=== PATIENT | male | born 1945 | race Caucasian/White ===

== ENCOUNTER 2020-05-25 16:51 | Emergency (ER) | payer MEDICARE, OTHER ==
--- NOTE | 2020-05-25 18:26 | EDM.PDOC ---
<Alana Singh - Last Filed: 05/25/20 18:40> ED HPI GENERAL MEDICAL PROBLEM - General Chief Complaint: Cardiovascular Problem Stated Complaint: C/R LAB RESULTS Time Seen by Provider: 05/25/20 17:45 Source of Information: Reports: Patient, Family, Old Records, RN, RN Notes Reviewed History Limitations: Reports: No Limitations - History of Present Illness INITIAL COMMENTS - FREE TEXT/NARRATIVE: Pt here with spouse after a phone call from Cardiology [employer] from todays visit. Old records were obtained and reviewed. BNP was 1141 and Hgb 7.6. Pt denies CP or syncope. One year cardiology appt today and was instructed to take 20 meQ of KCL and eat 1 banana. Then tomorrow take 40 meQ and eat 2 bananas. Pt has Lasix at home to take PRN and has not taken them lately. Presented at Dr today with +3 edema in BLLE. 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 Pt is SOB with exertion but CXR was clear for the most part. Onset: Today Onset Date: 05/25/20 - Related Data Allergies Allergy/AdvReac Type Severity Reaction Status Date / Time No Known Allergies Allergy Verified 05/25/20 17:40 Home Meds: Home Meds Aspirin [Halfprin] 81 mg PO DAILY 07/29/18 [History] Metoprolol Succinate [Toprol XL 100mg] 100 mg PO DAILY 07/29/18 [History] Multivit-Min/Iron Fum/Folic AC [Bqnrt-Cobpmka-Djtyjlyw Tablet] 1 each PO DAILY 07/29/18 [History] Nitroglycerin [Nitrostat] 0.4 mg SL ASDIRECTED 07/29/18 [History] Rosuvastatin [Crestor] 20 mg PO BEDTIME 07/29/18 [History] tadalafiL [Cialis] 10 mg PO DAILY PRN 07/29/18 [History] Furosemide 20 mg PO ASDIRECTED 05/25/20 [History] Past Medical History Cardiovascular History: Reports: Heart Failure, High Cholesterol, Hypertension Gastrointestinal History: Reports: Other (See Below) Other Gastrointestinal History: hernia - Past Surgical History Cardiovascular Surgical History: Reports: Coronary Artery Bypass Social & Family History - Tobacco Use Smoking Status *Q: Former Smoker Used Tobacco, but Quit: Yes Month/Year Tobacco Last Used: 0 - Caffeine Use Caffeine Use: Reports: Soda - Alcohol Use Days Per Week of Alcohol Use: 7 Number of Drinks Per Day: 1 Total Drinks Per Week: 7 - Recreational Drug Use Recreational Drug Use: No ED ROS GENERAL - Review of Systems Review Of Systems: See Below Constitutional: Reports: No Symptoms, Weight Gain (CHF fluid up 10 pounds) HEENT: Reports: No Symptoms Respiratory: Reports: Shortness of Breath (Fluid up 10 pounds CHf. Lasix RX instructed) Cardiovascular: Reports: No Symptoms Endocrine: Reports: No Symptoms GI/Abdominal: Reports: No Symptoms : Reports: No Symptoms Musculoskeletal: Reports: No Symptoms Skin: Reports: No Symptoms Neurological: Reports: No Symptoms Psychiatric: Reports: No Symptoms Hematologic/Lymphatic: Reports: No Symptoms Immunologic: Reports: No Symptoms ED EXAM, GENERAL - Physical Exam Exam: See Below Exam Limited By: No Limitations General Appearance: Alert, WD/WN, No Apparent Distress Eye Exam: Bilateral Eye: PERRL Head: Normocephalic Neck: Normal Inspection Respiratory/Chest: Lungs Clear, Normal Breath Sounds (SOB with exertion from CHF. Chronic) Cardiovascular: Regular Rate, Rhythm, Other (+3 edema BLLE ) Peripheral Pulses: 1+: Dorsalis Pedis (L), Dorsalis Pedis (R), 2+: Radial (L), Radial (R) GI/Abdominal: Normal Bowel Sounds (Male) Exam: Deferred Rectal (Males) Exam: Tenderness (Diffuse tenderness with exam. No masses. Light brown stool. No impaction. Guiac obtained. ) Extremities: Pedal Edema Neurological: Alert, Oriented, CN II-XII Intact Psychiatric: Normal Affect, Normal Mood Skin Exam: Warm, Dry, Normal Color Departure - Departure Time of Disposition: 18:40 Disposition: Home, Self-Care 01 Condition: Good Clinical Impression: Chronic anemia Instructions: Anemia Referrals: Felipe Haile NP [Primary Care Provider] - Forms: ED Department Discharge Care Plan Goals: The test for blood in stool was negative. Your hemoglobin was 7.6 and your BNP was 1141. Per your visit today with Cardiology, you need to follow up with your provider or Cardiology in the next 2 days. Please take TWO 20 mg Lasix tabs in the morning and eat 2 bananas throughout your day. If you do not have good urine output by the end of the day repeat the TWO 20 mg Lasix and 2 bananas AGAIN the following day. THEN take ONE 20 mg Lasix and 1 banana each morning until you re-visit your provider. Be sure to track your blood pressure BEFORE you take your Lasix. IF your blood pressure is under 100, hold the Lasix until your blood pressure will allow you to take the Lasix. even if that means the next day. Call tomorrow for your echocardiogram time as planned Sepsis Event Note (ED) - Evaluation Sepsis Screening Result: No Definite Risk - Problem List & Annotations (1) Chronic anemia SNOMED Code(s): 618416452 Code(s): D64.9 - ANEMIA, UNSPECIFIED Status: Acute Priority: High - Problem List Review Problem List Initiated/Reviewed/Updated: Yes - Assessment/Plan Plan: The test for blood in stool was negative. Your hemoglobin was 7.6 and your BNP was 1141. Per your visit today with Cardiology, you need to follow up with your provider or Cardiology next week. Please take TWO 20 mg Lasix tabs in the morning and eat 2 bananas throughout your day. If you do not have good urine output by the end of the day repeat the TWO 20 mg Lasix and 2 bananas AGAIN the following day. THEN take ONE 20 mg Lasix and 1 banana each morning until you re-visit your provider. Be sure to track your blood pressure BEFORE you take your Lasix. IF your blood pressure is under 100, hold the Lasix until your blood pressure will allow you to take the Lasix. even if that means the next day. <Barrera Coronel - Last Filed: 05/26/20 00:25> Course - Vital Signs Last Recorded V/S: Last Vital Signs Temp 97.7 F 05/25/20 17:38 Pulse 94 05/25/20 18:31 Resp 25 H 05/25/20 17:38 BP 151/64 H 05/25/20 18:31 Pulse Ox 91 L 05/25/20 17:38 - Re-Assessments/Exams Free Text/Narrative Re-Assessment/Exam: 05/25/20 19:48 Guaiac was negative and patient remained stable. Discussed his condition with the cardiology department in [place], they recommended rechecking the hemoglobin in the next 48 hours with the best scenario having him admitted tonight for observation. Patient did not want admission and did not agree, but he will come back and see his primary provider or go to the walk-in clinic in the next 48 hours for recheck. He will continue with the Lasix and potassium replacement with bananas as discussed with cardiology. Departure - Departure Time of Disposition: 19:54 Sepsis Event Note (ED) - Focused Exam Vital Signs: Vital Signs Temp Pulse Resp BP Pulse Ox 05/25/20 18:31 94 151/64 H 05/25/20 17:38 97.7 F 103 H 25 H 158/84 H 91 L 05/25/20 17:20 97.7 F 103 H 25 H 158/84 H 91 L
== END 2020-05-25 19:54 | disposition home or self-care (01) ==
LOC: JP.ED 16:51
DX: D64.9 Anemia, unspecified (principal); E78.00 Pure hypercholesterolemia, unspecified; I11.0 Hypertensive heart disease with heart failure; I50.9 Heart failure, unspecified; Z87.891 Personal history of nicotine dependence; Z79.82 Long term (current) use of aspirin
CPT/HCPCS: 82272; 99283

== ENCOUNTER 2022-10-14 02:28 | Emergency (ER) | payer MEDICARE, OTHER ==
[2022-10-14] MEDS ORDERED: Ondansetron 4 MG Tab.DIS PO ONE (03:17)
== END 2022-10-14 03:28 | disposition home or self-care (01) ==
LOC: JP.ED 02:28
DX: A08.4 Viral intestinal infection, unspecified (principal); I11.0 Hypertensive heart disease with heart failure; I50.9 Heart failure, unspecified; E78.00 Pure hypercholesterolemia, unspecified; Z79.82 Long term (current) use of aspirin; Z79.899 Other long term (current) drug therapy; Z95.1 Presence of aortocoronary bypass graft; Z87.891 Personal history of nicotine dependence
CPT/HCPCS: 99283; Q0162

== ENCOUNTER 2022-11-05 14:09 | Inpatient (IN) | payer MEDICARE, OTHER ==
[2022-11-05 15:08] LABS: ESTIMATED GFR 57 mL/min (>60); TROPONIN I HIGH SENSITIVITY 24.5 pg/mL (<=60.3)
[2022-11-05] MEDS ORDERED: Furosemide 40 MG/4 ML VIAL IVPUSH ONE (15:17)
[2022-11-05] MEDS ORDERED: Sodium Chloride 0.9% 10 ML Syringe FLUSH PRN (16:18)
[2022-11-05] MEDS ORDERED: Acetaminophen 325 MG Tab PO PRN (16:18)
[2022-11-05] MEDS ORDERED: Ondansetron 4 MG/2 ML SDV IV PRN (16:18)
[2022-11-05] MEDS ORDERED: Potassium Chloride 20 MEQ Tab.ER PO ONE (16:30)
[2022-11-05 17:45] LABS: CORONAVIRUS COVID-19 NAA NEGATIVE (NEGATIVE)
[2022-11-05] MEDS: Pantoprazole 40 MG Tab.CR PO SCH (18:24)
[2022-11-05] MEDS: Enoxaparin 40 MG/0.4 ML Syringe SUBCUT SCH (18:24)
[2022-11-05] MEDS: Rosuvastatin 10 MG Tab PO SCH (21:36)
[2022-11-06 05:39] LABS: ESTIMATED GFR 52 mL/min (>60)
[2022-11-06] MEDS ORDERED: Bumetanide 2.5 MG/10 ML MDV IVPUSH SCH ×2 (07:00)
[2022-11-06] MEDS: Bumetanide 0.5 MG, Bumetanide 2.5 MG IVPUSH SCH ×4 (07:27→19:12)
[2022-11-06] MEDS: Pantoprazole 40 MG Tab.CR PO SCH ×2 (07:28→17:00)
[2022-11-06] MEDS: Aspirin 81 MG Tab.EC PO SCH (08:33)
[2022-11-06] MEDS: Metoprolol Succinate 50 MG Tab.ER PO SCH (08:33)
[2022-11-06] MEDS ORDERED: Metoprolol Succinate 50 MG Tab.ER PO SCH (09:00)
[2022-11-06] MEDS ORDERED: Potassium Chloride 20 MEQ Tab.ER PO ONE ×2 (09:00→17:00)
[2022-11-06] MEDS: acetaZOLAMIDE 500 MG Vial IVPUSH SCH ×3 (10:20→21:44)
[2022-11-06] MEDS: Enoxaparin 40 MG/0.4 ML Syringe SUBCUT SCH (17:00)
[2022-11-06] MEDS: Rosuvastatin 10 MG Tab PO SCH (21:45)
[2022-11-07] MEDS: acetaZOLAMIDE 500 MG Vial IVPUSH SCH (04:30)
[2022-11-07] MEDS ORDERED: Potassium Chloride 20 MEQ Tab.ER PO ONE ×3 (06:50→18:00)
[2022-11-07] MEDS ORDERED: Potassium Chloride 10 MEQ in Premix Bag 1 BAG IV SCH (07:00)
[2022-11-07] MEDS: Bumetanide 0.5 MG, Bumetanide 2.5 MG IVPUSH SCH ×2 (07:25)
[2022-11-07] MEDS: Pantoprazole 40 MG Tab.CR PO SCH ×2 (07:26→17:16)
[2022-11-07] MEDS: Potassium Chloride 10 MEQ in Premix Bag 1 BAG IV SCH ×4 (08:16→11:50)
[2022-11-07] MEDS: acetaZOLAMIDE 250 MG Tab PO SCH ×2 (08:17→20:42)
[2022-11-07] MEDS: Aspirin 81 MG Tab.EC PO SCH (08:18)
[2022-11-07] MEDS: Metoprolol Succinate 50 MG Tab.ER PO SCH (09:34)
[2022-11-07] MEDS: Enoxaparin 40 MG/0.4 ML Syringe SUBCUT SCH (17:16)
[2022-11-07] MEDS: Rosuvastatin 10 MG Tab PO SCH (20:40)
[2022-11-08] MEDS: Pantoprazole 40 MG Tab.CR PO SCH ×2 (09:19→17:50)
[2022-11-08] MEDS: Aspirin 81 MG Tab.EC PO SCH (09:19)
[2022-11-08] MEDS: acetaZOLAMIDE 250 MG Tab PO SCH ×2 (09:19→21:35)
[2022-11-08] MEDS: Metoprolol Succinate 50 MG Tab.ER PO SCH (09:20)
[2022-11-08] MEDS: Enoxaparin 40 MG/0.4 ML Syringe SUBCUT SCH (17:51)
[2022-11-08] MEDS: Bumetanide 2.5 MG/10 ML MDV IVPUSH SCH (19:25)
[2022-11-08] MEDS: Rosuvastatin 10 MG Tab PO SCH (21:34)
[2022-11-09] MEDS ORDERED: Potassium Chloride 20 MEQ Tab.ER PO ONE ×3 (01:19→17:00)
[2022-11-09] MEDS ORDERED: Potassium Chloride 10 MEQ in Premix Bag 3 BAG IV ONE (01:19)
[2022-11-09] MEDS: Potassium Chloride 10 MEQ in Premix Bag 1 BAG IV SCH ×7 (01:42→13:44)
[2022-11-09] MEDS ORDERED: Melatonin 3 MG Tab PO PRN (01:50)
[2022-11-09] MEDS: Bumetanide 2.5 MG/10 ML MDV IVPUSH SCH ×2 (07:35→19:41)
[2022-11-09] MEDS: Pantoprazole 40 MG Tab.CR PO SCH ×2 (07:36→16:48)
[2022-11-09] MEDS: Metoprolol Succinate 50 MG Tab.ER PO SCH (08:42)
[2022-11-09] MEDS: acetaZOLAMIDE 250 MG Tab PO SCH ×2 (08:43→20:31)
[2022-11-09] MEDS: Aspirin 81 MG Tab.EC PO SCH (08:43)
[2022-11-09] MEDS ORDERED: Sodium Phosphate,Monobasic/Sodium Phosphate,Dibasic Enema 133 ML Bottle RECTAL PRN (11:46)
[2022-11-09] MEDS ORDERED: Polyethylene Glycol 3350 Powder 17 GM Packet PO ONE (11:46)
[2022-11-09] MEDS ORDERED: Bisacodyl 10 MG Supp RECTAL ONE (11:46)
[2022-11-09] MEDS: Enoxaparin 40 MG/0.4 ML Syringe SUBCUT SCH (17:59)
[2022-11-09] MEDS: Rosuvastatin 10 MG Tab PO SCH (20:30)
[2022-11-10] MEDS ORDERED: Potassium Chloride 20 MEQ Tab.ER PO ONE (08:15)
[2022-11-10] MEDS: Aspirin 81 MG Tab.EC PO SCH (09:40)
[2022-11-10] MEDS: Pantoprazole 40 MG Tab.CR PO SCH (09:40)
[2022-11-10] MEDS: Bumetanide 2.5 MG/10 ML MDV IVPUSH SCH (09:41)
[2022-11-10] MEDS: Metoprolol Succinate 50 MG Tab.ER PO SCH (09:41)
[2022-11-10] MEDS: acetaZOLAMIDE 250 MG Tab PO SCH (09:41)
== END 2022-11-10 11:46 | disposition home or self-care (01) | DRG 291 ==
LOC: JP.ED 14:09 → JP.MS 15:45
PROVIDERS: ADMIT Hospitalist; ATTEND Hospitalist
PROC: 0W993ZZ Drainage of Right Pleural Cavity, Percutaneous Approach (ICD-10-PCS; principal; 2022-11-06)
DX: I13.0 Hypertensive heart and chronic kidney disease with heart failure and stage 1 through stage 4 chronic kidney disease, or unspecified chronic kidney disease (principal); I50.33 Acute on chronic diastolic (congestive) heart failure; J90 Pleural effusion, not elsewhere classified; I25.5 Ischemic cardiomyopathy; E87.6 Hypokalemia; I87.8 Other specified disorders of veins; N18.30 Chronic kidney disease, stage 3 unspecified; E78.00 Pure hypercholesterolemia, unspecified; I25.10 Atherosclerotic heart disease of native coronary artery without angina pectoris; Z79.899 Other long term (current) drug therapy; Z79.82 Long term (current) use of aspirin; Z95.1 Presence of aortocoronary bypass graft
CPT/HCPCS: 0241U; 36415; 71045; 80048; 82042; 82150; 82945; 83615; 83735; 83986; 84132; 84155; 85025; 87015; 87070; 87102; 87116; 87205; 87206; 87220; 89050; 93306; 96374; 97110; 97162; 97530; 99222; 99232; 99238; 80053; 84145; 84484; 86140; 88112; 88305; 99285; 99285-25; A9270-GY; J1120; J1650; J1940; J3480; J3490